=== PATIENT | female | born 2000 | race Caucasian/White ===

== ENCOUNTER → 2023-05-06 | Emergency (ER) | payer BC, SELFPAY ==
[~2023-05-06] MED LIST: NA CHLORIDE 0.9% 500 ML ONE
--- NOTE | 2023-05-06 11:17 | RAD REPORT ---
EXAM DESCRIPTION: CT - Head Brain Wo Cont - 05/06/2023 11:01 am CLINICAL HISTORY: Headache COMPARISON: none TECHNIQUE: Computed axial tomography of the head was obtained. IV contrast was not requested. All CT scans are performed using dose optimization technique as appropriate and may include automated exposure control or mA/KV adjustment according to patient size. FINDINGS: An intracranial bleed is not seen The ventricles are normal in caliber No significant hypodense areas within the brain visualized No extra-axial fluid collection is noted. Fluid within the sinuses/ mastoids is not seen IMPRESSION: No acute intracranial abnormality is seen If patient's symptoms persist MRI of the brain would be recommended
[2023-05-06 12:16] LABS: Absolute Lymphocytes (CBC) 1.5 K/uL (0.7-4.9); Hematocrit 31.9 % (36.0-45.0); Lymphocytes % 23.4 % (15.3-44.8); MCV 83.4 fL (80-100); Platelets 228 thou/uL (152-406); RBC Red Blood Cell Count 3.83 M/uL (3.86-4.86)
[2023-05-06 12:18] LABS: Specific Gravity 1.008 (1.005-1.030)
[2023-05-06 12:19] LABS: Specific Gravity 1.007 (1.005-1.030); Urine Bacteria None Seen /HPF (<20); Urine Bilirubin NEGATIVE (Negative); Urine Blood Negative (Negative); Urine Clarity Turbid (Clear); Urine Color Colorless (Yellow); Urine Glucose NEGATIVE (Negative); Urine Mucus Slight /HPF (None Seen); Urine Protein NEGATIVE (Negative); Urine RBC <5 /HPF (None Seen); Urine Urobilinogen Normal (Normal)
[2023-05-06 12:37] LABS: Bilirubin Total 0.5 mg/dL (0.2-1.0); Potassium 3.5 mEq/L (3.5-5.1); Protein, Total 7.4 g/dL (6.4-8.2)
--- NOTE | 2023-05-06 13:09 | EDPHYS ---
Physician Documentation [facility] Name: Kemi Delong Age: 22 yrs Sex: Female : 2000 Arrival Date: 05/06/2023 Time: 10:40 Bed DX4 Private MD: ED Physician Travis Lewis HPI: 05/06 13:00 This 22 yrs old Female presents to ER via Ambulatory with complaints of High monserrat Blood Pressure, Headache, Shaking. 13:00 The patient has elevated blood pressure and discovered this at home, work. Onset: The monserrat symptoms/episode began/occurred just prior to arrival. Modifying factors: The symptoms are aggravated by activity, The symptoms are alleviated by remaining still. Associated signs and symptoms: Pertinent positives: headache. Severity of symptoms: At its worst the blood pressure was moderate, in the emergency department the blood pressure is unchanged. The patient has experienced similar episodes in the past, several times. 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 - Social history:: Smoking status: Patient denies any tobacco usage or history of. Patient uses alcohol, only on a social basis. - Family history:: not pertinent. ROS: 13:00 Constitutional: Negative for fever, chills, and weight loss, Eyes: Negative for injury, monserrat pain, redness, and discharge, ENT: Negative for injury, pain, and discharge, Neck: Negative for injury, pain, and swelling, Cardiovascular: Negative for chest pain, palpitations, and edema, Respiratory: Negative for shortness of breath, cough, wheezing, and pleuritic chest pain, Abdomen/GI: Negative for abdominal pain, nausea, vomiting, diarrhea, and constipation, Back: Negative for injury and pain, : Negative for injury, bleeding, discharge, and swelling, MS/Extremity: Negative for injury and deformity, Skin: Negative for injury, rash, and discoloration, Psych: Negative for depression, anxiety, suicide ideation, homicidal ideation, and hallucinations, Allergy/Immunology: Negative for hives, rash, and allergies, Endocrine: Negative for neck swelling, polydipsia, polyuria, polyphagia, and marked weight changes, Hematologic/Lymphatic: Negative for swollen nodes, abnormal bleeding, and unusual bruising, 13:00 Neuro: Positive for dizziness, headache, weakness, 13:09 : Negative for urinary symptoms, urinary frequency, hematuria, pelvic pain, flank monserrat pain, burning with urination, difficulty urinating, Exam: 13:00 Constitutional: This is a well developed, well nourished patient who is awake, alert, monserrat and in no acute distress. Head/Face: Normocephalic, atraumatic. Eyes: Pupils equal round and reactive to light, extra-ocular motions intact. Lids and lashes normal. Conjunctiva and sclera are non-icteric and not injected. Cornea within normal limits. Periorbital areas with no swelling, redness, or edema. ENT: Nares patent. No nasal discharge, no septal abnormalities noted. Tympanic membranes are normal and external auditory canals are clear. Oropharynx with no redness, swelling, or masses, exudates, or evidence of obstruction, uvula midline. Mucous membranes moist. Neck: Trachea midline, no thyromegaly or masses palpated, and no cervical lymphadenopathy. Supple, full range of motion without nuchal rigidity, or vertebral point tenderness. No Meningismus. Chest/axilla: Normal chest wall appearance and motion. Nontender with no deformity. No lesions are appreciated. Cardiovascular: Regular rate and rhythm with a normal S1 and S2. No gallops, murmurs, or rubs. Normal PMI, no JVD. No pulse deficits. Respiratory: Lungs have equal breath sounds bilaterally, clear to auscultation and percussion. No rales, rhonchi or wheezes noted. No increased work of breathing, no retractions or nasal flaring. Abdomen/GI: Soft, non-tender, with normal bowel sounds. No distension or tympany. No guarding or rebound. No evidence of tenderness throughout. Back: No spinal tenderness. No costovertebral tenderness. Full range of motion. Skin: Warm, dry with normal turgor. Normal color with no rashes, no lesions, and no evidence of cellulitis. MS/ Extremity: Pulses equal, no cyanosis. Neurovascular intact. Full, normal range of motion. Neuro: Awake and alert, GCS 15, oriented to person, place, time, and situation. Cranial nerves II-XII grossly intact. Motor strength 5/5 in all extremities. Sensory grossly intact. Cerebellar exam normal. Normal gait. Psych: Awake, alert, with orientation to person, place and time. Behavior, mood, and affect are within normal limits. 13:00 Musculoskeletal/extremity: DVT Exam: No signs of deep vein thrombosis. no pain, no swelling, no tenderness, negative Homans' sign noted on exam, no appreciated bluish discoloration, no erythema, no increased warmth, Vital Signs: 11:10 BP 131 / 81; Pulse 71; Resp 18; Temp 98.2; Pulse Ox 100% ; Weight 72.57 kg; Height 5 ap3 ft. 7 in. ; 12:53 BP 109 / 65; Pulse 62; Resp 20 S; Pulse Ox 97% on R/A; as6 11:10 Body Mass Index 25.06 (72.57 kg, 170.18 cm) ap3 MDM: 10:51 Patient medically screened. monserrat 13:05 Differential diagnosis: hypertensive crisis, Malignant HTN, CVA, intracerebral monserrat hemorrhage. Data reviewed: vital signs, nurses notes, lab test result(s), radiologic studies, CT scan. Consideration of Admission/Observation Escalation of care including admission/observation considered. I considered the following discharge prescriptions or medication management in the emergency department Medications were administered in the Emergency Department. See MAR. Independent interpretation of the following test(s) in the Emergency Department CT Scan: My interpretation is ct head. Test considered but Not performed: EKG: no ekg. Care significantly affected by the following chronic conditions: none. Counseling: I had a detailed discussion with the patient and/or guardian regarding the historical points, exam findings, and any diagnostic results supporting the discharge/admit diagnosis, the presence of at least one elevated blood pressure reading (>120/80) during this emergency department visit, radiology results, the need for outpatient follow up, for definitive care, a family practitioner. 05/06 10:52 Order name: CBC with Diff; Complete Time: 12:52 [facility] 05/06 10:52 Order name: Comprehensive Metabolic Panel; Complete Time: 12:52 [facility] 05/06 10:52 Order name: Urinalysis w/ reflexes; Complete Time: 12:52 [facility] 05/06 10:52 Order name: PREGU; Complete Time: 12:52 [facility] 05/06 10:52 Order name: CT Head Brain wo Cont; Complete Time: 12:52 monserrat Administered Medications: 12:10 Drug: NS 0.9% IV 500 ml IV at bolus once Route: IV; Rate: bolus; Site: left antecubital;as6 13:00 Follow up: Response: No adverse reaction; IV Status: Completed infusion; IV Intake: as6 500ml Disposition Summary: 05/06/23 13:09 Discharge Ordered Notes: Location: Home monserrat Problem: new monserrat Symptoms: have improved monserrat Condition: Stable monserrat Diagnosis - Essential (primary) hypertension monserrat - Headache monserrat Followup: monserrat - With: Private Physician - When: 2 - 3 days - Reason: Recheck today's complaints, Continuance of care, Re-evaluation by your physician Discharge Instructions: - Discharge Summary Sheet monserrat - Hypertension, Adult monserrat - Hypertension, Adult, [id number] monserrat - How to Take Your Blood Pressure, [id number] monserrat - Managing Your Hypertension [facility] Forms: - Medication Reconciliation Form monserrat - Thank You Letter monserrat - Antibiotic Education monserrat - Prescription Opioid Use monserrat - Patient Portal Instructions monserrat - Leadership Thank You Letter monserrat - Work release form as6 Signatures: Dispatcher [employer] Travis Orr MD MD cha Prokisch, Amanda, RN RN [email or web address] Lawrence King RN RN as6
--- NOTE | 2023-05-06 13:09 | ER ---
Nurse's Notes [facility] Name: Kemi Delong Age: 22 yrs Sex: Female : 2000 Arrival Date: 05/06/2023 Time: 10:40 Bed DX4 Private MD: Diagnosis: Essential (primary) hypertension;Headache Presentation: 05/06 11:10 Chief complaint: Patient states: she was at work, when she felt like her heart was ap3 beating out of her chest, patient states she believed the sensation was anxiety until a coworker assessed the patients blood pressure and it was reported to be high. Coronavirus screen: At this time, the client does not indicate any symptoms associated with coronavirus-19. Ebola Screen: No symptoms or risks identified at this time. Initial Sepsis Screen: Does the patient meet any 2 criteria? No. Patient's initial sepsis screen is negative. Does the patient have a suspected source of infection? No. Patient's initial sepsis screen is negative. Risk Assessment: Do you want to hurt yourself or someone else? Patient reports no desire to harm self or others. Onset of symptoms was May 06, 2023. 11:10 Method Of Arrival: Ambulatory ap3 11:10 Acuity: SUKHI 3 ap3 Triage Assessment: 10:45 General: Appears in no apparent distress. Behavior is calm, cooperative, appropriate ll1 for age. General: Reports high BP and shaking. Pain: Complains of pain in head Quality of pain is described as aching. Neuro: Reports headache. 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 - Social history:: Smoking status: Patient denies any tobacco usage or history of. Patient uses alcohol, only on a social basis. - Family history:: not pertinent. Screenin:12 [facility] ED Fall Risk Assessment (Adult) History of falling in the last 3 months, ap3 including since admission No falls in past 3 months (0 pts). Abuse screen: Denies threats or abuse. Nutritional screening: No deficits noted. Tuberculosis screening: No symptoms or risk factors identified. Assessment: 11:00 Reassessment: In CT when called into triage. ll1 12:11 General: Appears in no apparent distress. Behavior is cooperative, anxious, restless, as6 "I just don't feel like myself" . Pain: Complains of pain in neck. Neuro: Level of Consciousness is awake, alert, obeys commands, Oriented to person, place, time, situation. Cardiovascular: Reports shortness of breath, Denies chest pain, shortness of breath. Respiratory: Respiratory effort is even, unlabored, Respiratory pattern is regular, symmetrical. GI: No deficits noted. No signs and/or symptoms were reported involving the gastrointestinal system. : No deficits noted. No signs and/or symptoms were reported regarding the genitourinary system. EENT: No deficits noted. No signs and/or symptoms were reported regarding the EENT system. Derm: Skin is intact, is healthy with good turgor. Musculoskeletal: Circulation, motion, and sensation intact. Vital Signs: 11:10 BP 131 / 81; Pulse 71; Resp 18; Temp 98.2; Pulse Ox 100% ; Weight 72.57 kg; Height 5 ap3 ft. 7 in. ; 12:53 BP 109 / 65; Pulse 62; Resp 20 S; Pulse Ox 97% on R/A; as6 11:10 Body Mass Index 25.06 (72.57 kg, 170.18 cm) ap3 ED Course: 10:43 Patient arrived in ED. gm2 10:51 Travis Lewis MD is Attending Physician. monserrat 11:01 CT Head Brain wo Cont In Process Unspecified. EDMS 11:06 Arm band placed on. ll1 11:11 Triage completed. ap3 12:00 Lawrence King, PATRICIA is Primary Nurse. as6 12:11 Inserted saline lock: 20 gauge in left antecubital area, using aseptic technique. Blood as6 collected. 12:12 Bed in low position. Call light in reach. Adult w/ patient. as6 12:59 No provider procedures requiring assistance completed. as6 13:13 IV discontinued, intact, bleeding controlled, No redness/swelling at site. Pressure as6 dressing applied. 13:14 Provided Education on: follow up. as6 Administered Medications: 12:10 Drug: NS 0.9% IV 500 ml IV at bolus once Route: IV; Rate: bolus; Site: left antecubital;as6 13:00 Follow up: Response: No adverse reaction; IV Status: Completed infusion; IV Intake: as6 500ml Medication: 12:12 VIS not applicable for this client. as6 Intake: 13:00 IV: 500ml; Total: 500ml. as6 Outcome: 13:00 Discharged to home ambulatory, with family, as6 13:00 Condition: stable 13:09 Discharge ordered by MD. german 13:13 Discharge instructions given to patient, Instructed on discharge instructions, follow as6 up and referral plans. Demonstrated understanding of instructions, follow-up care, 13:14 Patient left the ED. as6 Signatures: Dispatcher [employer] EDMS Travis Lewis MD MD cha Prokisch, Amanda RN RN [email or web address] Teha Camarena RN RN ll1 Lawrence King RN RN as6 Glenys Martel 2 Corrections: (The following items were deleted from the chart) 11:05 11:00 Reassessment: No changes from previously documented assessment. In CT when called ll1 into triage ll1
[2023-05-06 14:56] VITALS: BP 109/65; TEMP 98.2; O2SAT 97
== END ==
LOC: ER 10:40
DX: I10 Essential (primary) hypertension (principal); R51.9 Headache, unspecified
CPT/HCPCS: 36415; 70450; 80053; 81001; 81025; 85025; 96360; 99284; J7040